=== PATIENT | female | born 1965 | race Caucasian/White ===

== ENCOUNTER 2021-12-13 15:00 | Outpatient (RCR) | payer OTHER | END 2021-12-14 | LOC: PT 15:00 | PROVIDERS: ATTEND Podiatrist | DX: R60.0 Localized edema (principal); R26.2 Difficulty in walking, not elsewhere classified ==

== ENCOUNTER → 2022-01-14 | Outpatient (RCR) | payer OTHER | LOC: PT 12-16 10:42 | PROVIDERS: ATTEND Podiatrist | DX: R60.0 Localized edema (principal); R26.2 Difficulty in walking, not elsewhere classified | CPT/HCPCS: 97139 ==

== ENCOUNTER 2022-03-10 15:10 | Outpatient (RCR) | payer OTHER | END 2022-03-16 | LOC: PT 15:10 | PROVIDERS: ATTEND Podiatrist | DX: M20.41 Other hammer toe(s) (acquired), right foot (principal) ==

== ENCOUNTER 2022-03-12 16:57 | Outpatient (RCR) | payer OTHER | END 2022-03-16 | LOC: PT 16:57 | PROVIDERS: ATTEND Podiatrist | DX: M20.41 Other hammer toe(s) (acquired), right foot (principal) ==

== ENCOUNTER 2022-04-14 15:00 | Outpatient (RCR) | payer OTHER | END 2022-04-16 | LOC: PT 15:00 | PROVIDERS: ATTEND Podiatrist | DX: M20.41 Other hammer toe(s) (acquired), right foot (principal); M79.674 Pain in right toe(s); R26.2 Difficulty in walking, not elsewhere classified; M62.81 Muscle weakness (generalized); M25.671 Stiffness of right ankle, not elsewhere classified ==